=== PATIENT | male | born 1955 | race Caucasian/White ===

== ENCOUNTER 2023-11-19 06:29 | Day surgery (SDC) | payer OTHER, SELFPAY ==
[2023-11-14 14:02] VITALS: BMI 23.5
[2023-11-14 14:02] LABS: Hematocrit 39.2 % (39.0-52.0); Hemoglobin 13.8 g/dL (13.0-18.0); Mean Corp Hgb Conc. 35.2 g/dL (33.0-37.0); Mean Corpuscular Hgb 34.6 pg (27.0-31.0); Mean Corpuscular Volume 98.2 fL (80.0-94.0); Mean Platelet Volume 9.8 fL (7.4-10.4); Platelet Count 206 10^3/uL (130-400); Red Blood Cell Count 3.99 10^6/uL (4.70-6.10); Red Cell Dist. Width 12.6 % (11.5-14.5); White Blood Cell Count 7.1 10^3/uL (4.8-10.8)
[2023-11-19] VITALS (9 sets, daily range): BP systolic 112–136; BP diastolic 61–80; BMI 23.5
[2023-11-19] MEDS: TYLENOL 1000 MG PO (09:48)
[2023-11-19] MEDS: CELEBREX 200 MG PO (09:48)
[2023-11-19] MEDS: NORMOSOL-R 1000 IV (10:10)
[2023-11-19] MEDS: ROXICODONE 5 MG PO (13:19)
== END 2023-11-19 13:37 | disposition home or self-care (01) ==
LOC: SDS 06:29
PROVIDERS: ATTENDING PHYSICIAN Orthopaedic Surgery; FAMILY PHYSICIAN Family Medicine; OTHER PHYSICIAN Internal Medicine Infectious Disease
DX: L03.114 Cellulitis of left upper limb (principal); M65.832 Other synovitis and tenosynovitis, left forearm; M85.632 Other cyst of bone, left forearm
CPT/HCPCS: 25116; 25066; 88304; 36415; 85027; 87070; 87075; 87205; 93005

== ENCOUNTER → 2024-01-21 07:32 | Outpatient (REF) | payer OTHER, SELFPAY | LOC: EMG 07:32 | PROVIDERS: ATTENDING PHYSICIAN Orthopaedic Surgery; FAMILY PHYSICIAN Family Medicine | DX: R20.0 Anesthesia of skin (principal) | CPT/HCPCS: 95886; 95910 ==